=== PATIENT | male | born 1930 | race Caucasian/White ===

== ENCOUNTER 2016-07-08 09:07 | Emergency (ER) | payer MEDICARE, BC ==
--- NOTE | 2016-07-08 09:31 | EDM.PDOC ---
<Katlin Benoit - Last Filed: 07/08/16 10:07> ED HPI GENERAL MEDICAL PROBLEM - General Chief Complaint: Neuro Symptoms/Deficits Stated Complaint: [id number] TINGLING IN ARM Time Seen by Provider: 07/08/16 09:26 Source of Information: Reports: Patient History Limitations: Reports: No limitations - History of Present Illness INITIAL COMMENTS - FREE TEXT/NARRATIVE: Patient presents to the ER with c/o tingling to the left arm. He states this has been happening for about 1 year, but he got a pamphlet in the mail for stroke prevention, etc., and didn't know the symptoms of a stroke. He states this made him concerned and thought he should get it checked out. Onset: gradual Location: Reports: upper extremity, left Quality: Reports: Other (tingling) Severity: moderate Improves with: Reports: Movement Worsens with: Reports: None Associated Symptoms: Reports: no other symptoms Left Arm Pain Score (Numeric/FACES): 1 - Related Data Allergies Allergy/AdvReac Type Severity Reaction Status Date / Time No Known Allergies Allergy Verified 07/08/16 09:15 Home Meds: Home Meds Levothyroxine Sodium [Levo-T] 6.25 mcg PO DAILY 07/08/16 [History] Simvastatin [Simvastatin] 20 mg PO DAILY 07/08/16 [History] ED ROS GENERAL - Review of Systems Review Of Systems: ROS reveals no pertinent complaints other than HPI. ED EXAM, GENERAL - Physical Exam Exam: See Below Exam Limited By: No limitations General Appearance: alert, WD/WN, no apparent distress Ears: normal external exam, normal canal, hearing grossly normal, normal TMs Ear Exam: bilateral ear: auricle normal, canal normal, TM normal Nose: normal inspection, normal mucosa, no blood Throat/Mouth: Normal inspection, Normal lips, Normal teeth, Normal gums, Normal oropharynx, Normal voice, No airway compromise Head: atraumatic, normocephalic Neck: normal inspection, supple, non-tender, full range of motion Respiratory/Chest: no respiratory distress, lungs clear, normal breath sounds, no accessory muscle use, chest non-tender Cardiovascular: normal peripheral pulses, regular rate, rhythm, no edema, no gallop, no JVD, no murmur, no rub Peripheral Pulses: 2+: radial (L), radial (R) GI/Abdominal: normal bowel sounds, soft, non tender, no organomegaly, no distention, no abnormal bruit, no mass (Male) Exam: Deferred Rectal (Males) Exam: Deferred Back Exam: normal inspection Extremities: normal inspection, normal range of motion, non-tender, normal capillary refill, no pedal edema Neurological: alert, oriented, CN II-XII intact, normal cognition, normal gait, no motor/sensory deficits Psychiatric: normal affect, normal mood Skin Exam: Warm, Dry, Intact, Normal color, No rash Lymphatic: no adenopathy Course - Vital Signs Last Recorded V/S: Last Vital Signs Temp 35.9 C 07/08/16 09:10 Pulse 84 07/08/16 09:10 Resp 16 07/08/16 09:10 BP 148/86 H 07/08/16 09:10 Pulse Ox 99 07/08/16 09:10 Departure - Departure Time of Disposition: 10:04 Disposition: Home, Self-Care 01 Condition: good Clinical Impression: Cervical radiculopathy Instructions: Cervical Radiculopathy, [id number] Forms: ED Department Discharge Additional Instructions: Follow up with primary care physician within the next week. <Hari Moran - Last Filed: 07/08/16 10:09> Course - Re-Assessments/Exams Free Text/Narrative Re-Assessment/Exam: 07/08/16 10:09 FOR THIS ENCOUNTER THE PATIENT WAS SEEN IN CONJUNCTION WITH [facility] STUDENT KATLIN BENOIT. ALL PATIENT CARE AND/OR PROCEDURE(S), DIAGNOSTIC ORDERS, MEDICATION(S) AND TREATMENT ORDERS, DISPOSITION ORDERS/PLANNING, AND DISCHARGE/FOLLOW UP INSTRUCTIONS WERE UNDER MY DIRECT SUPERVISION. jack
[2016-07-08 09:33] VITALS: BP 148/86
--- NOTE | 2016-07-08 10:04 | CR ---
CLINICAL HISTORY: 86-year-old male complaining of "tingling" left arm. INTERPRETATION: AP/lateral plain film exam cervical spine abnormal. Dense reactive atlantoaxial sclerosis. Subtle anterior subluxation C4 vertebral body but no cervical fractures. Abnormal intervertebral disc space narrowing with endplate sclerosis and hypertrophic marginal spur formation C4-5, C5-C6 and particularly C6-7 levels (some uncinate spur formation at this lower C6-7 level). No sign of pathologic skeletal lesion, prevertebral soft tissue swelling, cervical fracture or other spondylolisthesis (dislocation). Lung apices clear (cardiac pacemaker). 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
== END 2016-07-08 10:19 | disposition home or self-care (01) ==
LOC: DL.ED 09:07
DX: M54.12 Radiculopathy, cervical region (principal); Z79.899 Other long term (current) drug therapy
CPT/HCPCS: 72040; 99282; 99283